=== PATIENT | female | born 1955 | race Caucasian/White ===

== ENCOUNTER 2017-09-10 02:02 | Emergency (ER) | payer BC, OTHER ==
[2017-09-10] MEDS ORDERED: Ondansetron ODT 8 MG TAB ONE (04:23)
--- NOTE | 2017-09-10 08:41 | RAD ---
CHEST PA AND LATERAL: HISTORY: A 61-year-old female with shakiness and possible allergic reaction to Levaquin from 3 days ago. FINDINGS: Heart size is within normal limits. The lungs are clear. IMPRESSION: No active intrathoracic disease. No evidence of pneumonia or acute edema. POS: [facility]
== END 2017-09-10 04:46 | disposition home or self-care (01) ==
LOC: ERS 02:02
DX: G44.40 Drug-induced headache, not elsewhere classified, not intractable (principal); R11.2 Nausea with vomiting, unspecified; T37.8X5A Adverse effect of other specified systemic anti-infectives and antiparasitics, initial encounter
CPT/HCPCS: 71020

== ENCOUNTER 2018-03-12 13:10 | Outpatient (CLI) | payer BC | END 2018-03-12 13:11 | disposition home or self-care (01) | LOC: BICMAMMO 13:10 | PROVIDERS: ATTEND Obstetrics & Gynecology | DX: Z12.31 Encounter for screening mammogram for malignant neoplasm of breast (principal); N64.89 Other specified disorders of breast | CPT/HCPCS: 77067 ==

== ENCOUNTER 2018-04-19 08:38 | Outpatient (CLI) | payer BC | END 2018-04-19 08:39 | disposition home or self-care (01) | LOC: BICMAMMO 08:38 | PROVIDERS: ATTEND Internal Medicine | DX: R92.8 Other abnormal and inconclusive findings on diagnostic imaging of breast (principal); N64.89 Other specified disorders of breast | CPT/HCPCS: G0279 ==

== ENCOUNTER 2021-10-26 00:53 | Emergency (ER) | payer MEDICARE ==
[2021-10-26] MEDS ORDERED: Dexamethasone 4 MG TAB ONE (04:00)
== END 2021-10-26 04:10 | disposition home or self-care (01) ==
LOC: ERS 00:53
DX: R00.2 Palpitations (principal); R25.1 Tremor, unspecified; F41.9 Anxiety disorder, unspecified; T36.8X5A Adverse effect of other systemic antibiotics, initial encounter
CPT/HCPCS: 93005; J8540

== ENCOUNTER 2021-11-21 06:55 | Emergency (ER) | payer MEDICARE ==
[2021-11-21] MEDS ORDERED: Metoprolol Tartrate 25 MG TAB ONE (07:37)
[2021-11-21 08:11] LABS: #Basophils 0.1 thou/uL (0.0-0.2); #Eosinphils 0.1 thou/uL (0.0-0.7); #Lymphocytes 1.9 thou/uL (1.20-3.40); #Monocytes 0.6 thou/uL (0.11-0.59); #Neutrophils 5.2 thou/uL (1.40-6.50); %Basophils 1.4 % (0.0-1.0); %Eosinophils 1.6 % (0.0-10.0); %Lymphocytes 24.5 % (21.0-51.0); %Monocytes 7.5 % (0.0-10.0); Hemoglobin 14.6 g/dL (12.0-16.0); Mean Corpuscular Hemoglobin 31.8 pg (27.0-31.0); Mean Corpuscular Volume 96.1 fL (78.0-98.0); Mean Platelet Volume 7.1 fL (7.4-10.4); Platelet Count 348 thou/uL (130-400); RBC Distribution Width 11.9 % (11.5-14.5); White Blood Cell (WBC) Count 7.9 thou/uL (4.8-10.8)
[2021-11-21 08:46] LABS: ALT (SGPT) 20 U/L (8-55); AST (SGOT) 15 U/L (5-34); Albumin 4.1 g/dL (3.4-4.8); Alkaline Phosphatase 68 U/L (40-110); Anion Gap 15 mmol/L (10-20); BUN (Urea Nitrogen) 10 mg/dL (9.8-20.1); Bilirubin, Total 0.3 mg/dL (0.2-1.2); Calc. Creatinine Clearance 0 mL/min (70-130); Calcium 9.5 mg/dL (7.8-10.44); Carbon Dioxide 23 mmol/L (23-31); Chloride 108 mmol/L (98-107); Globulin 3.1 g/dL (2.4-3.5); Glucose 83 mg/dL (80-115); Potassium 3.8 mmol/L (3.5-5.1); Protein, Total 7.2 g/dL (5.8-8.1); Sodium 142 mmol/L (136-145)
[2021-11-21] MEDS ORDERED: Aspirin Chewable 81 MG TAB ONE (08:49)
[2021-11-21 10:38] LABS: Troponin I Less than 0.010 ng/mL (< 0.028)
[2021-11-21] MEDS ORDERED: Iopamidol 370 76% 50 ML VIAL FS ONE (10:57)
== END 2021-11-21 11:28 | disposition home or self-care (01) ==
LOC: ERS 06:55
DX: R00.2 Palpitations (principal); R07.9 Chest pain, unspecified; Z79.899 Other long term (current) drug therapy
CPT/HCPCS: 36415; 71045; 71275; 80053; 84484; 85025; 85379; 93005; Q9967

== ENCOUNTER 2025-07-09 18:03 | Emergency (ER) | payer MEDICARE ==
[2025-07-09 21:12] LABS: #Basophils 0.05 10x3/uL (0.0-0.2); #Eosinophils 0.05 10x3/uL (0.0-0.7); #Monocytes 0.80 10x3/uL (0.11-0.59); #Neutrophils 8.64 10x3/uL (1.40-6.50); %Basophils 0.4 % (0.0-1.0); %Eosinophils 0.4 % (0.0-10.0); %Lymphocytes 14.2 % (21.0-51.0); %Monocytes 7.2 % (0.0-10.0); %Neutrophils 77.5 % (42.0-75.0); Hematocrit 41.9 % (36.0-47.0); Hemoglobin 13.3 g/dL (12.0-16.0); Mean Corpuscular Hemoglobin 29.2 pg (27.0-31.0); Mean Corpuscular Volume 91.9 fL (78.0-98.0); Platelet Count 339 10x3/uL (130-400); Red Blood Cell (RBC) Count 4.56 mill/uL (4.20-5.40); White Blood Cell (WBC) Count 11.15 10x3/uL (4.8-10.8)
[2025-07-09 21:27] LABS: ALT (SGPT) 22 U/L (Less than 34); AST (SGOT) 20 U/L (11-34); Albumin 4.0 g/dL (3.1-4.5); Alkaline Phosphatase 54 U/L (40-110); Anion Gap 16 mmol/L (10-20); BUN (Urea Nitrogen) 11 mg/dL (9.8-20.1); Bilirubin, Total 0.3 mg/dL (0.3-1.2); Calc. Creatinine Clearance 0 mL/min (70-130); Calcium 9.4 mg/dL (7.8-10.44); Carbon Dioxide 22 mmol/L (23-31); Chloride 107 mmol/L (98-107); Globulin 2.6 g/dL (2.4-3.5); Glucose 102 mg/dL (83-110); Potassium 4.1 mmol/L (3.5-5.1); Sodium 141 mmol/L (136-145)
== END 2025-07-09 23:00 | disposition home or self-care (01) ==
LOC: ERS 18:03
DX: R00.0 Tachycardia, unspecified (principal)
CPT/HCPCS: 71045; 80053; 84484; 85025; 87428; 93005